=== PATIENT | male | born 2000 ===

== ENCOUNTER 2022-10-24 12:03 | Outpatient (REF) | payer BC, SELFPAY ==
[2022-10-24 15:49] LABS: Influenza A PCR NEGATIVE (Negative); Influenza B PCR NEGATIVE (Negative); Resp Syncy Virus RNA Qual PCR NEGATIVE (Negative); SARS COV2 PCR INHOUSE NEGATIVE (Negative)
== END 2022-10-24 12:04 | disposition home or self-care (01) ==
LOC: HO.LAB 12:03
PROVIDERS: Visit Provider Family Medicine
DX: Z20.822 Contact with and (suspected) exposure to COVID-19 (principal); R05.9 Cough, unspecified
CPT/HCPCS: 0241U